=== PATIENT | female | born 1935 | race Caucasian/White ===

== ENCOUNTER → 2016-12-03 | Outpatient (CLI) | payer MEDICARE, OTHER ==
[~2016-12-03] VITALS: Ht 162.6 cm; Wt 60.3 kg
[~2016-12-03] MED LIST: ASPI325T32 PO; BUPIVACAINE 0.25% 30 ML (SENSORCAINE) VIAL ONE; FAMO20TA5 PO; TRIAMCINOLONE ACET (KENALOG-40) 40 MG/ML 1 ML VIAL ONE
[2016-12-03 11:29] VITALS: BP 123/70
--- NOTE | 2016-12-03 12:24 | Pain Medicine-Procedure ---
Procedure Pre-Op/Post-Op Diagnosis Diagnosis: disc disorder with radiculopathy, lumbar Indications for Operation Low back pain Attending Surgeon Shawna Procedure Date of Service: Dec 03, 2016 Procedure: Lumbar Epidural Steroid Injection at the L4-L5 level under Fluoroscopic Guidance Procedure: Patient was identified in the holding area. After risks, benefits, and alternatives were discussed with the patient, informed consent was obtained. Patient was brought to the fluoroscopy suite and placed prone on the procedure room table. A time out was performed. Vital signs were monitored throughout the procedure. The patients low back was prepped and draped in the usual sterile fashion. The patients skin was anesthetized using 2% Lidocaine. A Tuohy needle was inserted and advanced to the L4-L5 epidural space under fluoroscopic guidance using the loss of resistance technique and intermittent projection of fluoroscopy. There was no paresthesia with needle placement. The needle position was confirmed in both the AP and lateral view. After negative aspiration 2ml of contrast was injected under live fluoroscopy which showed good spread of the contrast in the epidural space at the appropriate level, there was no intravascular or subarachnoid spread. Again, after negative aspiration for heme or CSF, 2 ml of 0.25% Bupivicaine, 2ml of preservative free normal saline, and 80mg of Kenalog was injected. The needle was removed and a sterile bandage was placed and the patient was transferred to the recovery area in stable condition. After a brief period of observation, patient was discharged to home with no new neurological deficits and no apparent complications. Complications None SANAM HERNANDEZ MD Dec 03, 2016 12:24 pm
== END ==
LOC: CARD 10:39
PROVIDERS: ATTEND Pain Medicine Pain Medicine
DX: M51.16 Intervertebral disc disorders with radiculopathy, lumbar region (principal); Z79.899 Other long term (current) drug therapy
CPT/HCPCS: 62323

== ENCOUNTER 2017-06-30 11:38 | Outpatient (CLI) | payer MEDICARE, OTHER ==
[~2017-06-30] VITALS: Ht 162.6 cm; Wt 58.1 kg
[~2017-06-30 11:38] MED LIST changes: -BUPIVACAINE 0.25% 30 ML (SENSORCAINE) VIAL ONE; -TRIAMCINOLONE ACET (KENALOG-40) 40 MG/ML 1 ML VIAL ONE
[2017-06-30] MEDS ORDERED: methylPREDNISolone 80 MG/ML (DEPO MEDROL) VIAL ONE (11:56)
[2017-06-30 12:11] VITALS: BP 136/83
[2017-06-30 13:04] VITALS: BP 143/84
--- NOTE | 2017-07-04 18:07 | OPERATIVE REPORT ---
DATE OF SERVICE: 06/30/2017 DIAGNOSIS: Lumbar radiculopathy. PROCEDURE: Fluoroscopic guided interlaminar epidural steroid injection. PROCEDURE IN DETAIL: After obtaining informed consent from the patient, the patient's chart was reviewed. The patient was then brought to the procedure room and placed in the prone position. A timeout was performed. The back was prepped with antiseptic solution and under fluoro guidance, the patient's lumbar spine was identified at the level of L5-S1. The L5-S1 vertebra was identified with fluoro guidance and approximately 2 mL of 1.5% lidocaine solution was used to anesthetize the skin directly down to the pedicle of the L5-S1 and under fluoroscopic guidance, the tract was anesthetized up to the interlaminar space and the ligamentum flavum. This needle was withdrawn. Then, a 20-gauge 3.5 inch Tuohy needle was then directed following the same tract that was anesthetized with the spinal needle. Using loss of resistance, the epidural space was identified and then the syringe was switched for contrast solution which was injected, approximately 1 mL. After secondary confirmation of epidural access, another syringe was placed and 80 mg of Depo-Medrol was injected. The Tuohy needle was then flushed out with approximately 2 mL of the normal saline used from the loss of resistance syringe. Band-Aids were applied to all the procedure sites. The patient tolerated the procedure well and was taken to the recovery room in stable condition. COMPLICATIONS: None. Job ID: [id number] DocumentID: [id number] Dictated Date: 07/04/2017 09:44:27 Pediatric Physical Therapy Assistant Date: 07/04/2017 18:06:07 Dictated By: JOSE MATHEW DO
== END 2017-06-30 13:05 ==
LOC: CARD 11:38
PROVIDERS: ATTEND Pain Medicine Interventional Pain Medicine
DX: M54.16 Radiculopathy, lumbar region (principal)
CPT/HCPCS: 62323

== ENCOUNTER 2017-10-07 05:33 | Outpatient (CLI) | payer MEDICARE, OTHER ==
[~2017-10-07] VITALS: Ht 162.6 cm; Wt 58.1 kg
[2017-10-07] MEDS ORDERED: FAMO-132 PO (15:37)
[2017-10-07] MEDS ORDERED: ATOR40TA PO (15:37)
== END 2017-10-07 15:38 ==
LOC: PREOP 05:33
PROVIDERS: ATTEND Internal Medicine
DX: Z01.818 Encounter for other preprocedural examination (principal); K21.9 Gastro-esophageal reflux disease without esophagitis; R10.13 Epigastric pain

== ENCOUNTER 2017-10-14 07:35 | Day surgery (SDC) | payer MEDICARE, OTHER ==
[~2017-10-14] VITALS: Ht 162.6 cm; Wt 58.1 kg
[~2017-10-14 07:35] MED LIST changes: +ATOR40TA PO; +FAMO-132 PO
[2017-10-14] MEDS ORDERED: D5 LR IV SOLUTION 1,000 ML IV STA (07:58)
[2017-10-14] MEDS ORDERED: HURRICAINE EXT TUBE (BENZOCAINE) XX PRN (08:00)
[2017-10-14] MEDS ORDERED: fentaNYL INJECTION 100 MCG/2 ML AMP IVP PRN (08:00)
[2017-10-14] MEDS ORDERED: LIDOCAINE JELLY 2% (XYLOCAINE) 5 ML TUBE MM PRN (08:00)
[2017-10-14] MEDS ORDERED: MIDAZOLAM 2 MG/2 ML (VERSED) VIAL IVP PRN (08:00)
[2017-10-14 08:01] VITALS: BP 126/73
--- NOTE | 2017-10-14 08:08 | Pre-Op Note & Conscious Sedat ---
Pre-Operative Progress Note H&P Reviewed The H&P was reviewed, patient examined and no changes noted. Date H&P Reviewed: Oct 14, 2017 Time H&P Reviewed: 08:07 Conscious Sedation Pre-Proced ASA Class: 2 Airway Mallampati Classification: ([place] appropriate class) I. II. III, IV Lungs Heart ASA score ASA 1: a normal healthy patient ASA 2: a patient with a mild systemic disease (mid diabetes, controlled hypertension, obesity ASA 3: a patient with a severe systemic disease that limits activity (angina , COPD, prior Myocardial infarction) ASA 4: a patient with an incapacitating disease that is a constant threat to life (CHF, renal failure) ASA 5: a moribund patient not expected to survive 24 hrs. (ruptured aneurysm) ASA 6: a declared brain patient whose organs are being harvested. For emergent operations, add the letter E after the classification Grade 2 Sedation Plan: Analgesia, Amnesia, Plan communicated to team members, Discussed options with patient/fam, Discussed risks with patient/fam Note The patient is an appropriate candidate to undergo the planned procedure, sedation, and anesthesia. The patient immediately re-assessed prior to indication. DESTINY VAZQUEZ MD Oct 14, 2017 08:08
[2017-10-14] MEDS ORDERED: ONDANSETRON 4 MG/2 ML (SDV) Z0FRAN IVP ONE (08:15)
[2017-10-14] MEDS ORDERED: PANT40TA3 PO (09:09)
[2017-10-14 09:30] VITALS: BP 124/68
[2017-10-14 09:55] VITALS: BP 122/77
[2017-10-14 10:28] VITALS: BP 122/77
--- NOTE | 2017-10-14 12:37 | OPERATIVE REPORT ---
DATE OF SERVICE: 10/14/2017 ESOPHAGOGASTRODUODENOSCOPY INDICATION FOR THE PROCEDURE: Epigastric pain and reflux sounding symptoms refractory to b.i.d. H2 laura therapy. DESCRIPTION OF PROCEDURE: The patient was placed in the left lateral decubitus position. The endoscope was inserted in the oral cavity and under direct visualization, the esophagus was intubated. The endoscope was passed down the esophagus through the stomach and second portion of the duodenum. A careful inspection was made as the endoscope was withdrawn. The patient tolerated the procedure well. FINDINGS: The oropharynx, arytenoid aperture, true and false vocal folds were unremarkable, no evidence for erythema was noted. The proximal and mid esophagus were unremarkable. Present in the distal esophagus involving about 20% of the circumference at the GE junction was ulceration extending 1 cm proximal from the Z line. No evidence for stricture formation was noted. A biopsy was obtained and submitted for histopathology. No rings, webs or gross evidence to suggest Turk's change was noted. A moderate size hiatal hernia was present. The cardia, fundus and antrum of the stomach were unremarkable. The pylorus, the pyloric channel, the duodenal bulb and second portion of the duodenum were unremarkable as well. ASSESSMENT: [place] grade B erosive esophagitis is present without visual evidence to suggest Turk's. As the patient has failed b.i.d. H2 laura therapy in the form of Pepcid and p.r.n. antacid therapy, we will initiate PPI therapy in the form of pantoprazole 40 mg each morning with p.r.n. antacid therapy. Nonmedication reflux measures, smaller meals, especially the evening meal, not eating or drinking for 3 to 4 hours before bedtime recommended. The patient does not consume alcohol or smoke. If this is not adequate for controlling symptoms, would then increase to b.i.d. pantoprazole. I thank you for the referral of this pleasant lady. Gastroesophageal junction biopsies at this patient's areas of ulceration are pending at the time of this dictation. Job ID: [id number] DocumentID: [id number] Dictated Date: 10/14/2017 09:18:33 Soiled Linen Distributor Date: 10/14/2017 12:36:34 Dictated By: DESTINY VAZQUEZ MD
--- NOTE | 2017-10-17 11:37 | HISTORY AND PHYSICAL ---
DATE OF ADMISSION: 11/08/2017. EGD HISTORY AND PHYSICAL HISTORY OF PRESENT ILLNESS: The patient is an 82-year-old white female referred by Dr. Nader Becerra for evaluation for EGD. She reports over the past 2 to 3 months despite b.i.d. Pepcid, she has been having increased problems with epigastric pain radiating up into the chest compatible with reflux. She has developed a cough with this and has the sensation of intermittent abdominal bloating. She reports that her weight has been stable. She denies dysphagia, bright red blood per rectum or melena. In the past, she had taken proton pump inhibitor therapy up until the admission for unstable DC in early 2015 that led to per her report three cardiac stents. Following that omeprazole was discontinued and Pepcid was begun. She had done relatively well on b.i.d. Pepcid and intermittent Tums up until the last 2 to 3 months. I performed an EGD on her in early 2011 that revealed evidence for a small hiatal hernia and nonerosive esophagitis that revealed no evidence for goblet cell metaplasia on biopsy of the GE junction. Other than coronary artery disease, she has history of hyperlipidemia. PAST SURGICAL HISTORY: She has had a past appendectomy and varicosity stripping of the lower extremities for symptomatic venous insufficiency. SOCIAL HISTORY: She is . She has a significant other previous caring for her significant other who reportedly has dementia. She has no past smoking or drinking history. FAMILY HISTORY: She is not aware of any family history for GI tract malignancy or inflammatory bowel disease. PHYSICAL EXAMINATION: GENERAL: Reveals normal weight white female, appearing younger than her stated age of 82, in no acute distress. VITAL SIGNS: Blood pressure 124/60. CHEST: Clear. CARDIOVASCULAR: Regular rate and rhythm without murmur, S3 or S4. ABDOMEN: Soft, supple without mass, organomegaly and mild epigastric tenderness to palpation is present without rebound or guarding. Bowel sounds are positive. EXTREMITIES: Reveal no cyanosis, clubbing or edema. ASSESSMENT AND PLAN: The patient was set up for EGD evaluation initially on the and then the patient moved th for reflux sounding symptoms and possibly associated chronic cough refractory to b.i.d. proton pump inhibitor therapy. Advised in the interim that she can increase use of Tums 2 tabs q.4 hours p.r.n. I thank you for the referral of this pleasant lady. She is advised to hold her aspirin for five days prior to the procedure. Job ID: [id number] DocumentID: [id number] Dictated Date: 09/28/2017 19:50:11 Box Toe Maker Date: 09/28/2017 20:20:48 Dictated By: DESTINY VAZQUEZ MD <Dictated by DESTINY VAZQUEZ MD> <Electronically signed by DESTINY VAZQUEZ MD> 09/30/17 130
== END 2017-10-14 10:28 | disposition home or self-care (01) ==
LOC: ENDO 07:35
PROVIDERS: ATTEND Internal Medicine
DX: K22.10 Ulcer of esophagus without bleeding (principal); K44.9 Diaphragmatic hernia without obstruction or gangrene; I25.10 Atherosclerotic heart disease of native coronary artery without angina pectoris; E78.5 Hyperlipidemia, unspecified

== ENCOUNTER 2017-12-15 13:24 | Outpatient (CLI) | payer MEDICARE, OTHER ==
[~2017-12-15] VITALS: Ht 162.6 cm; Wt 58.1 kg
[~2017-12-15 13:24] MED LIST changes: +PANT40TA3 PO
[2017-12-15] MEDS ORDERED: methylPREDNISolone 80 MG/ML (DEPO MEDROL) VIAL ONE (14:02)
[2017-12-15 14:10] VITALS: BP 134/84
[2017-12-15 14:31] VITALS: BP 147/89
--- NOTE | 2017-12-15 23:33 | OPERATIVE REPORT ---
DATE OF SERVICE: 12/15/2017 DIAGNOSIS: Lumbar radiculopathy. PROCEDURE: Fluoroscopic guided interlaminar epidural steroid injection. PROCEDURE IN DETAIL: After obtaining informed consent from the patient, the patient's chart was reviewed. The patient was then brought to the procedure room and placed in the prone position. A timeout was performed. The back was prepped with antiseptic solution and under fluoro guidance, the patient's lumbar spine was identified at the level of L5-S1. The L5-S1 vertebra was identified with fluoro guidance and approximately 2 mL of 1.5% lidocaine solution was used to anesthetize the skin directly down to the pedicle of the L5-S1 and under fluoroscopic guidance, the tract was anesthetized up to the interlaminar space and the ligamentum flavum. This needle was withdrawn. Then, a 20-gauge 3.5 inch Tuohy needle was then directed following the same tract that was anesthetized with the spinal needle. Using loss of resistance, the epidural space was identified and then the syringe was switched for contrast solution which was injected, approximately 1 mL. After secondary confirmation of epidural access, another syringe was placed and 80 mg of Depo-Medrol was injected. The Tuohy needle was then flushed out with approximately 2 mL of the normal saline used from the loss of resistance syringe. Band-Aids were applied to all the procedure sites. The patient tolerated the procedure well and was taken to the recovery room in stable condition. COMPLICATIONS: None. Job ID: [id number] DocumentID: [id number] Dictated Date: 12/15/2017 14:30:14 Waste Hand Date: 12/15/2017 23:32:43 Dictated By: JOSE MATHEW DO
== END 2017-12-15 14:31 ==
LOC: CARD 13:24
PROVIDERS: ATTEND Pain Medicine Interventional Pain Medicine
DX: M54.16 Radiculopathy, lumbar region (principal); G89.4 Chronic pain syndrome
CPT/HCPCS: 62323

== ENCOUNTER → 2019-01-15 | Outpatient (CLI) | payer MEDICARE, OTHER ==
--- NOTE | 2019-01-15 13:14 | Diagnostic Imaging Report ---
PROCEDURE: MRI lumbar spine. TECHNIQUE: Multiplanar, multisequence MRI of the lumbar spine was performed without contrast. INDICATION: Low back pain and right hip and buttock pain. COMPARISON: No prior studies are available for comparison. FINDINGS: There is normal lordotic curvature. There is minimal retrolisthesis of L1 on L2 and L2 on L3 with minimal anterolisthesis of L4 on L5. Vertebral body heights are maintained. The marrow signal intensity is unremarkable apart from Modic changes in the endplates at the L1-2 and L4-5 levels. Significant multilevel degenerative disc disease is noted with variable disc space narrowing and marginal spurring as well as desiccation. The conus is unremarkable at the T12-L1 level. T12-L1: Central canal is patent. Neural foramina are patent. L1-2: Central canal is patent. Neural foramina appear to be patent bilaterally. There is some narrowing of the lateral recesses bilaterally. L2-3: There is broad-based disc/osteophyte complex, but the central canal remains widely patent. Lateral recess narrowing is noted bilaterally, but neural foramina remain widely patent. L3-4: There is ligamentous thickening with mild trefoil configuration of the sac. There is mild central canal narrowing. There are hypertrophic facet changes. There is moderate left neural foraminal narrowing. Right neural foramen is patent. L4-5: Ligamentous thickening and facet changes with broad-based disc/osteophyte complex result in significant trefoil stenosis of the central canal. There is severe bilateral lateral recess stenosis. There is moderate right and mild left neural foraminal stenosis. L5-S1: Facet changes are noted. Central canal is patent. There is moderate left neural foraminal narrowing and lateral recess narrowing. Right neural foramen and lateral recess are patent. Paraspinous tissues are unremarkable. IMPRESSION: Multilevel lumbar spondylosis with multilevel central canal, lateral recess, and neural foraminal stenosis, described level by level above. No acute compression fracture is detected. Dictated by: Dictated on workstation # [id number]
== END ==
LOC: RAD 12:04
PROVIDERS: ATTEND Nurse Practitioner
DX: M47.817 Spondylosis without myelopathy or radiculopathy, lumbosacral region (principal); M48.07 Spinal stenosis, lumbosacral region; M51.36 Other intervertebral disc degeneration, lumbar region
CPT/HCPCS: 72148

== ENCOUNTER → 2023-02-25 | Outpatient (RCR) | payer MEDICARE, OTHER ==
[~2023-02-25] MED LIST changes: -PANT40TA3 PO; +PANT40TA52 PO
== END | disposition home or self-care (01) ==
PROVIDERS: ATTEND Orthopaedic Surgery
DX: Z47.1 Aftercare following joint replacement surgery (principal); Z96.652 Presence of left artificial knee joint